=== PATIENT | female | born 1945 ===

== ENCOUNTER 2017-08-28 10:41 | Outpatient (CLI) | payer MEDICARE | END 2017-08-28 10:42 | disposition home or self-care (01) | LOC: BICMAMMO 10:41 → EDSEX 10:41 → BICMAMMO 10:42 | PROVIDERS: ATTEND Family Medicine | DX: Z13.820 Encounter for screening for osteoporosis (principal); M81.0 Age-related osteoporosis without current pathological fracture; Z78.0 Asymptomatic menopausal state | CPT/HCPCS: 77080 ==

== ENCOUNTER 2018-06-07 09:53 | Outpatient (CLI) | payer MEDICARE | END 2018-06-07 09:54 | disposition home or self-care (01) | LOC: BICMAMMO 09:53 | PROVIDERS: ATTEND Family Medicine | DX: Z12.31 Encounter for screening mammogram for malignant neoplasm of breast (principal); R92.1 Mammographic calcification found on diagnostic imaging of breast; Z80.3 Family history of malignant neoplasm of breast | CPT/HCPCS: 77063; 77067 ==